=== PATIENT | female | born 1980 | race Caucasian/White ===

== ENCOUNTER 2017-06-06 14:37 | Inpatient (IN) | payer OTHER ==
[2017-06-06] MEDS ORDERED: TERBUTALINE SULFATE 1 MG/ML VIAL ONE (15:26)
[2017-06-06] MEDS ORDERED: LIDOCAINE 1% 300 MG/30 ML SDV ONE (15:26)
[2017-06-06] MEDS ORDERED: OXYTOCIN 10 UNIT/ML VIAL ONE (15:26)
[2017-06-06] MEDS ORDERED: AMMONIA AROMATIC 1 EACH AMP IH ONE (15:26)
[2017-06-06] MEDS ORDERED: OLIVE OIL 118 ML BTL ONE (15:26)
[2017-06-06] MEDS ORDERED: MISOPROSTOL 200 MCG TAB ONE (15:27)
[2017-06-06] MEDS ORDERED: TERBUTALINE SULFATE 1 MG/ML VIAL IV PRN (15:44)
[2017-06-06] MEDS ORDERED: OLIVE OIL 118 ML BTL MISC PRN (15:44)
[2017-06-06] MEDS ORDERED: LR 1,000 ML IV PRN (15:44)
[2017-06-06] MEDS ORDERED: OXYTOCIN/RINGERS LACTATE 1,000 ML IV PRN (15:44)
[2017-06-06] MEDS ORDERED: EPSOM SALT 454 GM TP PRN (15:44)
[2017-06-06] MEDS ORDERED: LIDOCAINE 1% 300 MG/30 ML SDV SC PRN (15:44)
[2017-06-06] MEDS ORDERED: BUPIVACAINE 0.25% 30 ML SDV ONE (16:30)
[2017-06-06] MEDS ORDERED: fentaNYL 100 MCG/2 ML INJ ONE (16:30)
[2017-06-06] MEDS ORDERED: fentaNYL 2MCG/ML/BUP 0.1% RTU 100 ML BAG EP ONE (16:30)
[2017-06-06] MEDS ORDERED: PHENYLEPHRINE HCL 100 MCG/ML SYR ONE (16:30)
[2017-06-06 16:44] LABS: % IMMATURE GRANULYOCYTES 0.7 % (0.0-1.1); ABSOLUTE IMMATURE GRANULOCYTES 0.13 10^3/uL (0.00-0.10); ADD DIFF? NO; ADD MORPH? NO; ADD SCAN? NO; ATYPICAL LYMPHOCYTE FLAG 10 (0-99); FRAGMENT RBC FLAG 0 (0-99); HEMATOCRIT 41.8 % (38.0-47.0); HEMOGLOBIN 14.3 g/dL (12.6-16.3); LEFT SHIFT FLG 0 (0-99); LIPEMIA HEMOLYSIS FLAG 90 (0-99); MEAN CELL HEMOGLOBIN 28.8 pg (27.9-34.1); MEAN CELL HEMOGLOBIN CONCENTR. 34.2 g/dL (32.4-36.7); MEAN CELL VOLUME 84.3 fL (81.5-99.8); MEAN PLATELET VOLUME 11.1 fL (8.7-11.7); PLATELET CLUMPS FLAG 10 (0-99); PLATELET COUNT 284 10^3/uL (150-400); RED BLOOD CELL COUNT 4.96 10^6/uL (4.18-5.33); RED CELL DISTRIBUTION WIDTH 13.8 % (11.5-15.2)
[2017-06-06] MEDS: IBUPROFEN 600 MG TAB PO PRN (17:56)
[2017-06-06] MEDS ORDERED: ACETAMINOPHEN 325 MG TAB PO PRN (18:03)
[2017-06-06] MEDS ORDERED: HYDROCODONE/APAP 5/325 TAB PO PRN (18:03)
[2017-06-06] MEDS ORDERED: DOCUSATE SODIUM 100 MG CAP PO PRN (18:03)
--- NOTE | 2017-06-06 18:08 | OBDEL ---
Info Type: Vaginal GBS+: No Indications for Delivery: Spontaneous Labor Vaginal Delivery - Labor and Delivery Onset of Contractions Date: 06/06/17 Onset of Contractions Time: 04:00 Onset of Contractions Type: Spontaneous Rupture of Membranes Date: 06/06/17 Rupture of Membranes Time: 04:00 Rupture of Membranes Type: Spontaneous Amniotic Fluid Color: Clear (terminal mec noted on delivery) Dilation Complete Date: 06/06/17 Dilation Complete Time: 16:58 Placenta Delivery Date: 06/06/17 Placenta Delivery Time: 17:40 Total Hours of Labor: 13 Vaginal Sponge Count Correct: Yes Vaginal Needle Count Correct: Yes Vaginal Sweep Performed: No EBL: 350 Delivery Events: Nuchal Cord (and arm cord) Delivery Comment: ctxn intensity became worse upon admission approx 14:45 - initial exam was 3-4 cm [place] [facility] Delivery Date: 06/06/17 Delivery Time: 17:25 JINA: 06/04/17 Gestational Age: 40 week(s) and 2 day(s) Sex of Infant: Female Score (1 Min): 7 Score (5 Min): 8 ICD10 Worksheet Patient Problems: Problems Problem Status Onset (spontaneous vaginal delivery) Acute
--- NOTE | 2017-06-06 18:16 | OBGCSDC ---
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
--- NOTE | 2017-06-06 18:18 | POSTANESTH ---
Post Anesthetic Evaluation Cardiovascular Status: Normal, Stable Respiratory Status: Normal, Stable, Similar to Pre-op Cond. Level of Consciousness/Mental Status: Can Participate in Eval, Alert and Oriented Pain Control: Adequate, Prn Tx Ordered Nausea/Vomiting Control: Adequate, Prn Tx Ordered Complications Possibly Related to Anesthesia: None Noted
--- NOTE | 2017-06-06 18:18 | PREANESOB ---
Obstetric Pre-Anesthesia Info - General Info Proposed Procedure: Labor and delivery. : 5 Para: 1 WBD: 40 - Info Status: Full Term Monitors: External FHR Baseline (bpm): 130 FHR Pattern: Reassuring - Labor Status Cervical Dilation per last OB SVE: 10 Rupture of Membranes Time: 04:00 Indications for Labor Analgesia: Pain Control Labor Epidural: Proposed Anesthesia ROS: Prior labor epidural. Allergies/Adverse Reactions: Allergy/AdvReac Type Severity Reaction Status Date / Time No Known Allergies Allergy Verified 06/06/17 14:48 Home Medications: Medication Instructions Recorded Fish Oil 1 cap PO DAILY 08/01/15 1 tab PO DAILY 08/01/15 Ibuprofen [Motrin (*)] 600 mg PO Q6 PRN #30 tab 08/04/15 Visit Medications: Generic Name Dose Route Start Last Admin Trade Name Freq PRN Reason Stop Dose Admin Acetaminophen 325 - 650 mg 06/06/17 18:03 Tylenol PO 12/03/17 18:02 Q4HRS PRN Pain, Mild Hydrocodone Bitart/Acetaminophen 1 - 2 tab 06/06/17 18:03 Liberty 5/325 PO 06/16/17 18:02 Q4HRS PRN Pain, Moderate Docusate Sodium 100 mg 06/06/17 18:03 Colace PO 12/03/17 18:02 BID PRN Constipation Lactated Ringer's 1,000 mls @ 0 mls/hr 06/06/17 15:44 Lr IV 12/03/17 15:43 PRN PRN SEE PROTOCOL CONDITIONS Protocol Per Protocol Oxytocin/Lactated Ringer's 1,000 mls @ 150 mls/hr 06/06/17 15:44 Pitocin 20 Units/Lr (Premix) IV PRN PRN Post- bleeding Ibuprofen 600 mg 06/06/17 15:44 06/06/17 17:56 Motrin PO 12/03/17 15:43 600 mg Q6HRS PRN Administration post , inflammation Lidocaine HCl 300 mg 06/06/17 15:44 Lidocaine Hcl 1% SC 12/03/17 15:43 ONCE PRN episiotomy Magnesium Sulfate 454 gm 06/06/17 15:44 Epsom Salt TP 12/03/17 15:43 Q1H PRN perineal discomfort Watrous Oil 118 ml 06/06/17 15:44 Sweet Oil MISC 12/03/17 15:43 ONCE PRN preneal massage Terbutaline Sulfate 0.25 mg 06/06/17 15:44 Brethine IV 12/03/17 15:43 ONCE PRN Tachysystole Discontinued Medications Generic Name Dose Route Start Last Admin Trade Name Francy PRN Reason Stop Dose Admin Ammonia (Aromatic Spirit) Confirm 06/06/17 15:26 Ammonia Aromatic Administered 06/06/17 15:27 Dose 1 each IH .STK-MED ONE Bupivacaine HCl Confirm 06/06/17 16:30 Sensorcaine 0.25% Sdv Administered 06/06/17 16:31 Dose 30 ml .ROUTE .STK-MED ONE Ephedrine Sulfate Confirm 06/06/17 15:26 Ephedrine Sulfate Administered 06/06/17 15:27 Dose 50 mg .ROUTE .STK-MED ONE Fentanyl Confirm 06/06/17 16:30 Sublimaze Administered 06/06/17 16:31 Dose 100 mcg .ROUTE .STK-MED ONE Fentanyl/Bupivacaine HCl Confirm 06/06/17 16:30 Fentanyl/Bupivacaine/Ns 2 Mcg/Ml 0.1% (Premix Administered 06/06/17 16:31 Dose 100 ml EP .STK-MED ONE Lidocaine HCl Confirm 06/06/17 15:26 Lidocaine Hcl 1% Administered 06/06/17 15:27 Dose 300 mg .ROUTE .STK-MED ONE Misoprostol Confirm 06/06/17 15:27 Cytotec Administered 06/06/17 15:28 Dose 1,000 mcg .ROUTE .STK-MED ONE Watrous Oil Confirm 06/06/17 15:26 Sweet Oil Administered 06/06/17 15:27 Dose 118 ml .ROUTE .STK-MED ONE Oxytocin Confirm 06/06/17 15:26 Pitocin Administered 06/06/17 15:27 Dose 40 unit .ROUTE .STK-MED ONE Phenylephrine HCl Confirm 06/06/17 16:30 Neosynephrine Administered 06/06/17 16:31 Dose 1,000 mcg .ROUTE .STK-MED ONE Terbutaline Sulfate Confirm 06/06/17 15:26 Brethine Administered 06/06/17 15:27 Dose 1 mg .ROUTE .STK-MED ONE - Anesthesia History Response to Local Anesthetics: Normal Anesthesia & Operative History: No Prior Problems Family Anesthesia History: Negative - Social History Substance Use/Abuse: Denies - Focused Exam Blood Pressure: 120/74 Heart Rate: 73 Height/Weight (Nursing): Height 165.1 cm Weight 87.09 kg Physical Exam: Within normal limits. ASA Status: II Labs: 06/06/17 15:34 Patient ABO/Rh O POSITIVE 06/06/17 15:34 - Plan Anesthetic Plan: CSE Consent Signed and on Chart: Yes Patient/Guardian Understands and Agrees to Plan: Yes Urgent/Emergent Case: Nicky francisco completed preop but documented later for safe timely pt care
[2017-06-06] MEDS ORDERED: ONDANSETRON 4 MG/2 ML VIAL IVP PRN (18:19)
[2017-06-06] MEDS ORDERED: PHENYLEPHRINE HCL 100 MCG/ML SYR IVP PRN (18:19)
[2017-06-06] MEDS ORDERED: LR 500 ML IV SCH (18:30)
[2017-06-06] MEDS ORDERED: fentaNYL 2MCG/ML/BUP 0.1% RTU 100 ML EP SCH (18:30)
--- NOTE | 2017-06-06 19:12 | GHP ---
[f rep st] HISTORY AND PHYSICAL DATE OF ADMISSION: 06/06/2017 HISTORY OF PRESENT ILLNESS: Upon admission, the patient is a 36-year-old G5, P1, A3 with an estimat ed due date of 06/04, who presents at 40 weeks and 2 days with spontaneous labor. Patient had spont aneous rupture of membranes at 4 a.m. with clear fluid. She has had off and on contractions through the morning but really increased in intensity when the patient was admitted to Labor and Delivery a pproximately 1445. The initial cervical exam here on admission was 3-4 cm dilated, 80% effaced, at -2 station. The patient was still having clear fluid. With the intensity really increasing, the pa dian requested an epidural. The patient was checked, and she had already progressed to complete di lation. Dr. Santos quickly placed a combination epidural with partial spinal block for the patient to have comfort. The patient was getting comfortable upon my arrival. CARE: The patient was seen by [facility] since first trimester at 8 weeks. Ess entially the patient had an uncomplicated . LABORATORIES: Included maternal blood type O positive with negative antibody screen. RPR nonreactive. Rubella immune. Hepatitis B surface antigen negative. HIV negative. Initial hematoc rit 40% with repeat hematocrit at 32%, and the patient has been on iron through the . Urin alysis and culture were negative. Pap smear normal. Gonorrhea and chlamydia were negative. Verifi testing was negative. One-hour Glucola was normal. GBS culture was negative. PAST MEDICAL HISTORY: The patient was found in her first to be a factor XI genetic piedad r for deficiency. Patient herself is asymptomatic. Patient had an abnormal Pap smear in 2004 with a colposcopy but no further issues and Pap smears improved. PAST SURGICAL HISTORY: Odontectomy. PAST HISTORY: Terminations of pregnancies in the first trimester in 1997 and 2004. A spo ntaneous AB in October 2014. A spontaneous vaginal delivery in July 2015 of a viable female at 8 pounds 1 ounce after a 35-hour labor with an epidural. SOCIAL HISTORY: The patient is . Lives with her and their daughter. Patient is a n onsmoker. No alcohol or drug use. ALLERGIES: Patient has no known drug allergies. CURRENT MEDICATIONS: Only vitamins and iron. PHYSICAL EXAMINATION: GENERAL: Upon admission, the patient is a well-developed, well-nourished whi te female in physical distress with increasing contractions. Currently, the patient is very comfort able with an epidural. VITAL SIGNS: Upon admission are normal and the patient is afebrile. See [facility] documentation for full details. heart tones initially upon admission showed category 1 tracing with baseline in the 130s. There were variable decelerations as the patient became more unc omfortable with labor, and at the point, patient was completely dilated. She was having increasing variable decelerations. Good recovery to baseline. Contractions every 2 minutes spontaneously. On physical exam, patient is completely dilated at 0 station. Clear fluid noted with pushing. EXTREM ITIES: Nontender and moderate edema. ASSESSMENT: Intrauterine at 40 weeks and 2 days in spontaneous labor after spontaneous ru pture of membranes. GBS negative. Rapid onset of labor in the last 2 hours. PLAN: Expect vaginal delivery soon. /[id number]/MODL
[2017-06-07] MEDS: IBUPROFEN 600 MG TAB PO PRN ×3 (00:30→20:03)
--- NOTE | 2017-06-07 09:34 | OBPP ---
Progress Note Assessment/Plan: Assessment:ff@u scant rubra lochia voiding without difficulty nipple tenderness requesting apno cream to assist pain well managed' perineum approximated/ minimal swelling Plan:discharge to home with instructions: ss infection, bleeding. pelvic rest, rest, contraception, pain management, continue PNV depression, fu care 4 weeks for a mood check and 6 weeks pp fu ok with poc. 06/07/17 09:12 06/07/17 10:12 Subjective: Doing well denies difficulties. Nipple tenderness requesting apno cream to assist. Discussed good latch and positioning Objective: 06/06/17 15:34 Patient ABO/Rh O POSITIVE 06/06/17 15:34 Temp Pulse Resp BP Pulse Ox 36.8 C 90 16 119/58 L 94 06/06/17 22:00 06/06/17 22:00 06/06/17 22:00 06/06/17 22:00 06/06/17 22:00 Uterine Position/Fundal Height: At Umbilicus Uterine Tone: Firm Physical Exam - Physical Exam General Appearance: WD/WN, alert, no apparent distress Abdomen: other (ff@u) Extremities: normal range of motion, Elpidio's sign (negative bilaterally) DTR- Lower Extremities: Knee (R): 1+, Knee (L): 1+ (no clonus bilaterally) Skin: normal color, warm/dry Neuro/Psych: no motor/sensory deficits, alert, normal mood/affect, oriented x 3
--- NOTE | 2017-06-07 11:42 | OBGCSDC ---
General Delivery Information - General Info : 5 Para: 3 Delivery Physician/CNM: Sandra Vasques Labs: Patient ABO/Rh O POSITIVE 06/06/17 15:34 Hct 41.8 % (38.0-47.0) 06/06/17 15:34 Vaginal - Diagnosis Labor: Spontaneous Presentation at Delivery: Vertex Rupture of Membranes Type: Spontaneous Amniotic Fluid Color: Clear (terminal mec noted on delivery) Delivery Events: Nuchal Cord (and arm cord) - Operations/Procedures L&D Analgesia/Anesthesia Type: Epidural - Hospital Course Antepartum: ama factor xi defiency carrier Intrapartum: 1 degree repair vaginal delivery : Doing well denies difficultys. PAin well managed. denies difficultys. home pp day 1 well - Delivery L&D Analgesia/Anesthesia Type: Epidural [place] Data Reyna Delivery Date: 06/06/17 Delivery Time: 17:25 JINA: 06/04/17 Gestational Age: 40 week(s) and 3 day(s) Sex of : Female Weight (gm): 3754 g Score (1 Min): 7 Score (5 Min): 8
[2017-06-07 20:26] VITALS: PULSE 77; O2SAT 94
[2017-06-08] MEDS: IBUPROFEN 600 MG TAB PO PRN (05:20)
--- NOTE | 2017-06-08 09:12 | OBPP ---
Progress Note Assessment/Plan: Assessment: s/p PPD # 2 - pt is stable Plan: Plan for d/c home today No Rx given Instructions reviewed with pt Cont PNV Recommend Motrin and Colace prn Pelvic rest RTC in 4 and 6 weeks 06/08/17 09:09 Subjective: Pt seen and examined. Doing well with no complaints. Minimal cramping. Moderate lochia. Pt is OOB, dimas regular diet, voiding without difficulty and passing flatus. No BM yet. BF without difficulty. Objective: 06/06/17 15:34 Patient ABO/Rh O POSITIVE 06/06/17 15:34 Temp Pulse Resp BP Pulse Ox 36.7 C 77 16 121/81 H 94 06/07/17 20:20 06/07/17 20:20 06/07/17 20:20 06/07/17 20:20 06/07/17 20:20 Uterine Position/Fundal Height: Umbilicus -2 Uterine Tone: Firm Physical Exam - Physical Exam General Appearance: WD/WN, alert Respiratory: lungs clear, normal breath sounds Cardiac/Chest: regular rate, rhythm Abdomen: normal bowel sounds, non-tender, soft, flatus (+) Extremities: non-tender, normal inspection Skin: normal color, warm/dry Neuro/Psych: alert, normal mood/affect, oriented x 3
[2017-06-08 09:21] VITALS: BP 119/74; RESP 17; TEMP 97.9
== END 2017-06-08 14:00 | disposition home or self-care (01) | DRG 775 ==
LOC: FLD 14:37 → FOB 20:03
PROVIDERS: ADMIT Obstetrics & Gynecology; ATTEND Obstetrics & Gynecology
PROC: 10E0XZZ Delivery of Products of Conception, External Approach (ICD-10-PCS; principal; 2017-06-06)
PROC: 0HQ9XZZ Repair Perineum Skin, External Approach (ICD-10-PCS; principal; 2017-06-06)
DX: O69.82X0 Labor and delivery complicated by other cord entanglement, without compression, not applicable or unspecified (principal); O77.0 Labor and delivery complicated by meconium in amniotic fluid; O70.0 First degree perineal laceration during delivery; O99.113 Other diseases of the blood and blood-forming organs and certain disorders involving the immune mechanism complicating pregnancy, third trimester; D68.1 Hereditary factor XI deficiency; Z3A.40 40 weeks gestation of pregnancy; Z37.0 Single live birth
CPT/HCPCS: J2370; J2590; J3010; J3105

== ENCOUNTER → 2017-07-04 | Outpatient (CLI) | payer OTHER | LOC: BMCIMAGING 10:57 | PROVIDERS: ATTEND Internal Medicine | DX: R05 Cough (principal) ==

== ENCOUNTER → 2017-09-01 | Outpatient (CLI) | payer OTHER | LOC: FLACT 09:49 | PROVIDERS: ATTEND Obstetrics & Gynecology | DX: O92.79 Other disorders of lactation (principal) | CPT/HCPCS: G0463 ==